=== PATIENT | female | born 2000 | race Caucasian/White ===

== ENCOUNTER 2021-06-18 15:32 | Emergency (ER) | payer OTHER ==
[~2021-06-18] VITALS: Ht 177.8 cm; Wt 70.5 kg
[2021-06-18 15:38] VITALS: BP 109/62; TEMP 98.9
[2021-06-18 16:27] VITALS: PULSE 86
== END 2021-06-18 16:27 | disposition home or self-care (01) ==
LOC: COL.ER 15:32
DX: S80.02XA Contusion of left knee, initial encounter (principal); Z98.890 Other specified postprocedural states; W19.XXXA Unspecified fall, initial encounter; Y93.01 Activity, walking, marching and hiking